=== PATIENT | female | born 1945 | race Caucasian/White ===

== ENCOUNTER 2020-11-29 09:05 | Outpatient (CLI) | payer MEDICARE, OTHER ==
[2020-11-29 09:35] LABS: BASOPHILS % (AUTO) 0.3 %; EOSINOPHILS # (AUTO) 0.4 10^3/uL (0.0-0.7); EOSINOPHILS % (AUTO) 4.7 %; HGB - HEMOGLOBIN 13.3 g/dL (12.0-16.0); LYMPHOCYTES # (AUTO) 2.7 10^3/uL (1.5-3.5); LYMPHOCYTES % (AUTO) 35.8 %; MEAN CORPUSCULAR HEMOGLOBIN 27.6 pg (27.0-31.0); MEAN CORPUSCULAR HGB CONC 32.4 g/dL (32.0-36.0); MEAN CORPUSCULAR VOLUME 85.3 fL (81.0-99.0); MEAN PLATELET VOLUME 9.9 fL (7.9-10.8); MONOCYTES # (AUTO) 0.7 10^3/uL (0.0-1.0); MONOCYTES % (AUTO) 9.5 %; NEUTROPHILS # (AUTO) 3.7 10^3/uL (1.5-6.6); NEUTROPHILS % (AUTO) 49.4 %; PLT - PLATELET COUNT 261 10^3/uL (130-450); RED BLOOD COUNT 4.82 10^6/uL (4.20-5.40); RED CELL DISTRIBUTION WIDTH 13.5 % (12.0-15.0); WHITE BLOOD COUNT 7.5 x10^3/uL (4.8-10.8)
[2020-11-29 09:39] LABS: INR 1.1 (0.8-1.2); PT - PROTHROMBIN TIME 12.5 secs (9.9-12.6)
[2020-11-29 09:45] LABS: CALCIUM 10.3 mg/dL (8.5-10.3); CREATININE 0.7 mg/dL (0.4-1.0)
[2020-11-29 09:46] LABS: PARTIAL THROMBOPLASTIN TIME 29.4 secs (24.9-33.3)
== END 2020-11-29 09:06 | disposition home or self-care (01) ==
LOC: LAB 09:05
PROVIDERS: ATTEND Urology
DX: N20.1 Calculus of ureter (principal); Z86.39 Personal history of other endocrine, nutritional and metabolic disease
CPT/HCPCS: 36415; 80048; 85025; 85610; 85730

== ENCOUNTER 2021-01-06 08:35 | Outpatient (CLI) | payer MEDICARE, OTHER ==
[2021-01-06] MEDS ORDERED: FUROSEMIDE 40 MG/4 ML VIAL IVP ONE (09:00)
--- NOTE | 2021-01-06 14:38 | Nuclear Medicine Report ---
PROCEDURE: Renal Flow + Function w/Rx INDICATIONS: HYDRONEPHROSIS, UNSPECIFIED RADIOPHARMACEUTICAL: 5.4 mCi Tc-99m MAG3 IV and 40 mg furosemide IV. TECHNIQUE: The patient was hydrated orally before the examination was begun. After intravenous administration o f Tc-99m MAG3, posterior abdominal radionuclide angiogram and sequential (1 minute each frame) renal images were obtained. A time-activity curve for each kidney was generated and analyzed. To evaluate f or obstruction, the patient was given 40 mg furosemide via slow intravenous injec?tion after the star t of the examination. Sequential images were obtained for up to an additional 20 minutes. COMPARISON: None available. FINDINGS: Perfusion: There is decreased vascular flow to the left kidney. Morphology: There is asymmetric renal size, right larger than left. No dilated collecting systems ar e seen. The right ureter and bladder fill with appear normal. The left ureter is faintly seen Function: There is left greater than right abnormal decreased cortical tracer uptake, with time-to-pe ak activity measuring approximately 16 minutes on the right, 35 minutes on the left. The right kidne y contributes 79% of total renal function. The left kidney contributes 21% of total renal function. Lasix stimulation: After diuretic administration, there is delayed clearance of tracer activity from the renal collecting systems in both kidneys (technically absent on the left). The half-time of emp tying of tracer activity from the right pelvicaliceal system is 36.6 minutes. The half-time of empty ing from the left pelvicaliceal system is not measurable . Normal emptying half-times are less than 10 minutes; borderline ranges are from 10 to 20 minutes. IMPRESSION: Asymmetric renal function, right contributes more than left, as detailed above. Both kidneys cortical tracer uptake are abnormal. Bilateral delayed tracer clearance as detailed above (although left much more abnormal than right). Reviewed by: Ty Burden MD on 01/06/2021 2:37 PM PDT Approved by: Ty Burden MD on 01/06/2021 2:37 PM PDT Station ID: [id number]
== END 2021-01-06 08:36 | disposition home or self-care (01) ==
LOC: DI 08:35
PROVIDERS: ATTEND Urology
DX: N13.30 Unspecified hydronephrosis (principal)
CPT/HCPCS: 78708

== ENCOUNTER 2021-03-07 09:40 | Outpatient (CLI) | payer MEDICARE, OTHER ==
--- NOTE | 2021-03-07 13:25 | CT Report ---
PROCEDURE: ABDOMEN WO INDICATIONS: NEPHROLITHIASIS TECHNIQUE: Noncontrast 5 mm thick sections acquired from the diaphragms to the symphysis 5 mm coronal and sagitt al reformats were then performed. For radiation dose reduction, the following was used: automated e xposure control, adjustment of mA and/or kV according to patient size. COMPARISON: None. FINDINGS: Image quality: Excellent. Lung bases: Lung bases are clear. Heart size is normal. Urinary system: The right kidney contains a normal cortical thickness and there is a small cyst ante riorly in the right upper pole. There is a large staghorn calculus in the mid and lower pole right re nal calyx with average Hounsfield units of 1135. The stone is irregular in shape and measures approxi mately 3.8 cm in maximum craniocaudal dimension, 2.7 cm transversely, and in the lower pole, 2.8 cm i n AP direction. The upper pole major calyx is either dilated or there is a parapelvic cyst. The right ureter is nondilated. The left renal cortex is atrophied. The renal length is roughly 9.0 cm and there is severe, chronic a ppearing hydronephrosis. There are a few dependent calcifications in the mid and lower pole measuring maximally 4 mm. Of the extrarenal pelvis is dilated and there is a calcification at the ureteropelvi c junction measuring 4 mm, 6/28, beyond which the ureter is normal caliber. Other solid organs: Liver contains 3 left lobe hepatic cysts, largest measuring 3.0 cm. There are co arse calcifications in the spleen consistent with granulomas. Adrenal glands and pancreas are unremar kable. Gallbladder is partially decompressed, within normal limits. No visible biliary dilatation. Peritoneum and bowel: Unenhanced bowel loops demonstrate normal wall thickness and caliber. Several diverticula in the sigmoid colon. No acute inflammation. Normal appendix. No free fluid or air. Nodes and vessels: No retroperitoneal or mesenteric adenopathy by size criteria. Aorta and inferior vena cava are normal in caliber. Abdominal wall: No ventral hernias. Pelvis: The urinary bladder is partially decompressed. No bladder calculi or suspicious wall thickeni ng. The uterus contains coarse calcifications, likely degenerating fibroids. No suspicious adnexal ma ss. No pelvic adenopathy. Bones: No suspicious bony lesions. Subcortical cystic changes along the superomedial aspect of the left femoral head, left side much greater than right. Moderate femoral acetabular joint space loss bi laterally. No vertebral body compression fractures. IMPRESSION: 1. Large right-sided intrarenal calcification as described. 2. 4 mm left-sided ureteropelvic junction calcification. 3. Chronic appearing severe left hydronephrosis and cortical atrophy. This could indicate a chronic o bstruction. 4. Sigmoid colon diverticulosis. Reviewed by: Minal Castro MD on 03/07/2021 1:24 PM PDT Approved by: Minal Castro MD on 03/07/2021 1:24 PM PDT Station ID: [id number]
== END 2021-03-07 09:41 | disposition home or self-care (01) ==
LOC: DI 09:40
PROVIDERS: ATTEND Urology
DX: N13.2 Hydronephrosis with renal and ureteral calculous obstruction (principal)

== ENCOUNTER 2021-04-25 14:04 | Outpatient (CLI) | payer MEDICARE, OTHER ==
[2021-04-25 14:22] LABS: BASOPHILS # (AUTO) 0.1 10^3/uL (0.0-0.1); BASOPHILS % (AUTO) 0.6 %; EOSINOPHILS # (AUTO) 0.4 10^3/uL (0.0-0.7); EOSINOPHILS % (AUTO) 4.1 %; HCT - HEMATOCRIT 40.9 % (37.0-47.0); HGB - HEMOGLOBIN 13.4 g/dL (12.0-16.0); LYMPHOCYTES # (AUTO) 2.8 10^3/uL (1.5-3.5); LYMPHOCYTES % (AUTO) 31.4 %; MEAN CORPUSCULAR HEMOGLOBIN 28.2 pg (27.0-31.0); MEAN CORPUSCULAR HGB CONC 32.8 g/dL (32.0-36.0); MEAN CORPUSCULAR VOLUME 85.9 fL (81.0-99.0); MEAN PLATELET VOLUME 9.9 fL (7.9-10.8); MONOCYTES # (AUTO) 0.8 10^3/uL (0.0-1.0); MONOCYTES % (AUTO) 9.2 %; NEUTROPHILS # (AUTO) 4.8 10^3/uL (1.5-6.6); NEUTROPHILS % (AUTO) 54.4 %; PLT - PLATELET COUNT 263 10^3/uL (130-450); RED BLOOD COUNT 4.76 10^6/uL (4.20-5.40); RED CELL DISTRIBUTION WIDTH 13.3 % (12.0-15.0); WHITE BLOOD COUNT 8.8 x10^3/uL (4.8-10.8)
[2021-04-25 14:30] LABS: CREATININE 1.1 mg/dL (0.4-1.0); POTASSIUM 4.3 mmol/L (3.5-5.0)
[2021-04-25 14:36] LABS: INR 1.1 (0.8-1.2); PT - PROTHROMBIN TIME 12.2 secs (9.9-12.6)
== END 2021-04-25 14:05 | disposition home or self-care (01) ==
LOC: LAB 14:04
PROVIDERS: ATTEND Urology
DX: N20.0 Calculus of kidney (principal)
CPT/HCPCS: 36415; 80048; 85025; 85610; 85730

== ENCOUNTER 2022-05-04 08:00 | Outpatient (CLI) | payer MEDICARE, OTHER | END 2022-05-04 23:59 | disposition home or self-care (01) | LOC: LAB.N 08:00 | PROVIDERS: ATTEND Emergency Medicine | DX: J02.9 Acute pharyngitis, unspecified (principal) | CPT/HCPCS: 87070 ==